=== PATIENT | male | born 1970 | race Native Hawaiian/Other Pacific Islander ===

== ENCOUNTER 2020-12-21 17:55 | Emergency (ER) | payer OTHER | END 2020-12-21 19:12 | disposition home or self-care (01) | LOC: ED 17:55 | DX: R50.9 Fever, unspecified (principal) | CPT/HCPCS: 99281 ==

== ENCOUNTER 2020-12-25 10:45 | Emergency (ER) | payer OTHER ==
[~2020-12-25] VITALS: Ht 188 cm; Wt 133.8 kg
[2020-12-25 11:31] LABS: PLATELET COUNT 468 K/uL (142-355)
[2020-12-25 11:44] LABS: POTASSIUM 3.4 mmol/L (3.6-5.2); SODIUM 132 mmol/L (136-145)
[2020-12-25 11:58] LABS: PARTIAL THROMBOPLASTIN TIME 27.5 SECONDS (24.5-33.6)
[2020-12-26 13:53] LABS: PLATELET COUNT 580 K/uL (142-355)
[2020-12-26 13:56] LABS: POTASSIUM 4.2 mmol/L (3.6-5.2)
[2020-12-27 04:53] LABS: POTASSIUM 4.2 mmol/L (3.6-5.2)
[2020-12-27 05:05] LABS: PLATELET COUNT 436 K/uL (142-355)
[2020-12-27 11:58] VITALS: TEMP 97.1
--- NOTE | 2020-12-27 12:51 | NUR ---
i spoke with pt in his ED room on the portable phone at Dr. Gomez's request. Dr. Gomez stated that he needs home oxygen due to results of walk test. I told pt that i spoke with [facility] [phone] and it is $150 for first months rental of portable bottle and home concentrator. Pt statd that he can pay with check today for this. I am faxing orders to [facility] at [facility] [phone]. I have notified Kaya Avila RN in ER of pts acceptance. They will drop equipment at front desk supervisor and collect payment at that time.
[2020-12-27 14:00] VITALS: BP 112/78
== END 2020-12-27 15:40 | disposition still patient (30) ==
LOC: ED 10:45
PROVIDERS: Family Medicine; Hospitalist
DX: U07.1 COVID-19 (principal); J12.82 Pneumonia due to coronavirus disease 2019
CPT/HCPCS: 36415; 36600; 80053; 82550; 82553; 82728; 82805; 83735; 83880; 84100; 84484; 85007; 85027; 85379; 85610; 85730; 86140; 86900; 86901; 93005; 94760; J0456; J1100; J1650; J1940; P9017